=== PATIENT | male | born 1985 | race Caucasian/White ===

== ENCOUNTER 2022-05-03 08:00 | Outpatient (CLI) | payer OTHER ==
--- NOTE | 2022-05-03 16:30 | XRAY Report ---
PROCEDURE: Chest 2 View X-Ray INDICATIONS: LLL PNEUMONIA TECHNIQUE: 2 view(s) of the chest. COMPARISON: None. FINDINGS: Surgical changes and devices: None. Lungs and pleura: Blunting of the left costophrenic angle. Minimal opacity at the left lung base. Mediastinum: Mediastinal contours are normal. Heart size is normal. Bones and chest wall: No suspicious bony abnormalities. Soft tissues appear unremarkable. IMPRESSION: Small left pleural effusion. Reviewed by: Kieran Anaya MD on 05/03/2022 4:29 PM PDT Approved by: Kieran Anaya MD on 05/03/2022 4:29 PM PDT Station ID: [id number]
== END 2022-05-03 23:59 | disposition home or self-care (01) ==
LOC: DI.S 08:00
PROVIDERS: ATTEND Emergency Medicine
DX: J18.9 Pneumonia, unspecified organism (principal); J90 Pleural effusion, not elsewhere classified